=== PATIENT | female | born 1940 | race Caucasian/White ===

== ENCOUNTER 2022-06-16 11:04 | Emergency (ER) | payer MEDICARE ==
[~2022-06-16] VITALS: Ht 165.1 cm; Wt 75.3 kg
[2022-06-16 11:06] VITALS: BP 149/88
--- NOTE | 2022-06-16 11:09 | NUR ---
ARRIVAL PATIENT ARRIVED TO ED2 VIA GURNEY BY [facility], C/O HYPOGLYCEMIA TODAY, FAMILY AND PATIENT STATES SHE TOOK MORE LANTUS AND HUMALOG INSULIN LAST NIGHT, FAMILY HAS ATTEMPTED ALL DAY TO CORRECT BUT FEEDING PATIENT, LOWEST GLUCOSE PER EMS WAS 68, ON EMS ARRIVAL GLUCOSE IS 108, 18G WAS INITIATED TO THE LEFT AC SALINE LOCKED, PATIENT DID FALL LAST NIGHT WITH BRUISING TO THE LIP THIS MORNING, ASSISTED PATIENT TO ED RSAN DIEGO, VITAL SIGNS TAKEN AND DOCTOR NOTIFIED OF PATIENT'S ARRIVAL.
--- NOTE | 2022-06-16 11:17 | NUR ---
GLUCOSE BEDSIDE GLUCOSE 68, DOCTOR NOTIFIED.
[2022-06-16] MEDS ORDERED: DEXTROSE 10%-WATER IV SOLUTION 500 ML IV ONE (11:18)
[2022-06-16] MEDS ORDERED: DEXTROSE 10%-WATER IV SOLUTION 500 ML IV STA (11:19)
--- NOTE | 2022-06-16 11:19 | ER.PDOC ---
General Chief Complaint: General Complaint Stated Complaint: HYPOGLYCEMIA TRAVEL OUT OF US: No Time seen by MD: 11:12 Source: patient, EMS, EMS notes reviewed Exam Limitations: no limitations History of Present Illness Initial Comments Patient has been experiencing low blood sugar since last night. Per report from EMS, she is supposed to take 8 units of Lantus and 35 units of Humalog at night. She took 8 units of Lantus and 55 of Humalog last night. She was not unable to maintain her sugar which was monitored by a family member who is a dinkey operator. Before EMS was called, her sugar was 68. She ate and also drank juice. When EMS arrived on scene, repeat blood sugar was 108. Patient was brought in the ED to be evaluated. No chest pain or shortness of breath. She has a small bruise on the right upper lip from likely falling last night. She does not remember falling. Blood sugar here has dropped to 68. Timing/Duration: 4-6 hours Severity: moderate Associated Symptoms: denies symptoms Allergies: Coded Allergies: Penicillins (Verified Allergy, Unknown, ., 06/16/22) Sulfa (Sulfonamide Antibiotics) (Verified Allergy, Unknown, 06/16/22) acetaminophen (Verified Allergy, Unknown, 06/16/22) cephalexin (Verified Allergy, Unknown, 06/16/22) hydrocodone (Verified Allergy, Unknown, 06/16/22) levofloxacin (Verified Allergy, Unknown, 06/16/22) nitrofurantoin (Verified Allergy, Unknown, 06/16/22) Past Medical History Medical History: diabetes, renal disease, thyroid disease Surgical History: other Social History Alcohol Use: none Drug Use: none Review of Systems Constitutional: no symptoms reported EENTM: no symptoms reported Respiratory: no symptoms reported Cardiovascular: no symptoms reported Gastrointestinal: no symptoms reported Musculoskeletal: see HPI All Other Systems: Reviewed and Negative Physical Exam General Appearance: No Apparent Distress, WD/WN Neck: Non-Tender, Full Range of Motion, Supple, Normal Inspection Respiratory: chest non-tender, lungs clear, normal breath sounds, no respira tory distress CVS: reg rate & rhythm, no murmur, no gallop, pulses nml, nml capillary refill Gastrointestinal: Normal Bowel Sounds, No Organomegaly, No Pulsatile Mass, Non Tender Back: Normal Inspection, No CVA Tenderness Extremities: Normal Range of Motion, Non-Tender, Normal Inspection 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 (06/16/22 11:08) Xr Chest 1v (06/16/22 11:08) Ekg-Routine (06/16/22 11:08) Troponin I High Sensitivity (06/16/22 11:08) Urinalysis (06/16/22 11:08) Ct Head Wo Contrast (06/16/22 11:08) Dextrose 10 % In Water (Dextrose 10%-Ginger (06/16/22 11:18) Dextrose 10 % In Water (Dextrose 10%-Ginger (06/16/22 11:19) Urine Culture (06/16/22 13:45) Ceftriaxone Sodium (Rocephin) (06/16/22 14:53) Vital Signs Date Time Temp Pulse Resp B/P (MAP) Pulse Ox O2 Delivery O2 Flow Rate FiO2 06/16/22 13:39 96.0 58 18 138/54 (82) 99 Room Air* 0 21 06/16/22 11:06 96.0 66 18 149/88 (108) 99 Room Air* 0 21 06/16/22 11:06 96.0 66 18 99 06/16/22 11:06 96.0 66 18 Administered Medications Medications (Trade) Dose Ordered Sig/Vivek Route PRN Reason Start Time Stop Time Status Last Admin Dose Admin Ceftriaxone Sodium 1000 mg/ Sodium Chloride 100 ml @ 100 mls/hr STAT STAT IV 06/16/22 14:53 06/16/22 15:52 06/16/22 14:58 100 MLS/HR Dextrose 500 ml @ 100 mls/hr STAT STAT IV 06/16/22 11:19 06/16/22 16:18 UNV 06/16/22 11:25 100 MLS/HR Laboratory Tests Test 06/16/22 00:00 06/16/22 11:15 06/16/22 11:35 06/16/22 12:08 Urine Collection Type UNKNOWN Urine Color YELLOW Urine Appearance CLOUDY Urine Bilirubin NEGATIVE (NEGATIVE) Urine Ketones NEGATIVE (NEGATIVE) Urine Specific [place] 1.025 (1.005-1.030) Urine pH 5.0 (4.5-8.0) Urine Protein 3+ (NEGATIVE) H Urine Urobilinogen 0.2 E.U./dL (0.2) Urine Nitrate NEGATIVE (NEGATIVE) Urine Leukocyte Esterase TRACE (NEGATIVE) H Urine Glucose (Auto)(UA) 100 mg/dL (NEGATIVE) H Urine Blood 2+ (NEGATIVE) H Urine RBC 5-10 RBC/HPF (NONE SEEN) H Urine WBC 10-25 WBC/HPF (0-2) H Urine Squamous Epithelial Cells FEW (<=FEW) Urine Bacteria MANY (NONE SEEN) H POC Glucose 68 (70 - 110) L 124 (70 - 110) H White Blood Count 10.3 10^3/uL (4.5-11.0) Red Blood Count 4.31 10^6/uL (4.00-5.20) Hemoglobin 13.0 g/dL (12.0-15.0) Hematocrit 38.8 % (36.0-46.0) Mean Corpuscular Volume 90.0 fL (78-100) Mean Corpuscular Hemoglobin 30.2 pg (26-34) Mean Corpuscular Hemoglobin Concent 33.5 g/dL (33-36.5) Red Cell Distribution Width 11.9 % (11.5-14.5) Platelet Count 280 10^3/uL (150-400) Mean Platelet Volume 9.9 fL (7.8-11.0) Neutrophils (%) (Auto) 85.6 % (41.0-85.0) H Lymphocytes (%) (Auto) 11.8 % (24.0-44.0) L Monocytes (%) (Auto) 2.3 % (5.0-12.0) L Neutrophils # (Auto) 8.8 10^3/uL (1.8-7.7) H Lymphocytes # (Auto) 1.22 10^3/uL1 (1.0-4.8) Monocytes # (Auto) 0.2 10^3/uL (0.3-0.8) L Absolute Immature Granulocyte (auto 0.02 10^3 u/L (0-2) Absolute Eosinophils (auto) 0.0 10^3/uL (0.0-0.2) Immature Granulocytes % 0.20 % (0.00-0.50) Eosinophils % 0.0 % (0.0-5.0) Basophils % 0.1 % (0.0-0.2) Basophils # 0.0 10^3/uL (0.0-0.1) Prothrombin Time 10.3 SEC (9.1-11.5) Prothrombin Time INR (Non-Therap) 1.0 Activated Partial Thromboplast Time 20.9 SEC (22.5-33.1) L Sodium Level 143 mmol/L (132-145) Potassium Level 5.0 mmol/L (3.6-5.2) Chloride Level 106.0 mmol/L (96-109) Carbon Dioxide Level 22.1 mmol/L (20.0-32) Anion Gap 19.9 Blood Urea Nitrogen 59 mg/dL (7-18) H Creatinine 2.33 mg/dL (0.59-1.40) *H Estimated GFR () 24.4 (>/=60) Est GFR (CKD-EPI)(Non-Afr [place]) 20.2 (>/=60) BUN/Creatinine Ratio 25.0 Glucose Level 105 mg/dL (70-110) Calcium Level 9.5 mg/dL (8.4-10.5) Total Bilirubin 0.3 mg/dL (0.2-1.0) Aspartate Amino Transferase (AST) 33 U/L (0-35) Alanine Aminotransferase (ALT) 16 U/L (12-78) Alkaline Phosphatase 50 U/L (50-136) Total Creatine Kinase 506 U/L (26-192) H Troponin I High Sensitivity 49 ng/L (0-50) Total Protein 7.1 g/dL (6.4-8.2) Albumin 3.4 g/dL (3.4-5.0) Globulin 3.7 Albumin/Globulin Ratio 0.918 Test 06/16/22 13:34 06/16/22 14:24 POC Glucose 197 (70 - 110) H 244 (70 - 110) H Progress Progress CT head showed no acute abnormality. Chest x-ray show no acute disease. Urinalysis is consistent with UTI. Chemistry show creatinine of 2.33 and BUN of 59. Patient has stage III kidney disease. Troponin is normal. Rest of chemistry is unremarkable. CBC is normal. Patient fed and serial blood sugars 197 and 244. She was fed here. She is stable to go home. She is feeling better. Received Rocephin 1 g IV. ER DEPART Departure Time of Disposition: 15:08 Disposition: 01 HOME / SELF CARE / HOMELESS Impression: Primary Impression: Hypoglycemia Additional Impressions: Head injury, acute UTI (urinary tract infection) Condition: Improved Additional Instructions: Cefdinir Follow-up with your PCP in 2 to 3 days Return to ED if worsening symptoms or concerns Duration or Time Spent with Pa: 60 min Critical Care Note Total Time (mins): 60 Problem Qualifiers Additional Impressions: Head injury, acute Encounter type: initial encounter Qualified Codes: S09.90XA - Unspecified injury of head, initial encounter UTI (urinary tract infection) Urinary tract infection type: site unspecified Hematuria presence: with hematuria Qualified Codes: N39.0 - Urinary tract infection, site not specified; R31.9 - Hematuria, unspecified KEVIN NAIK MD Jun 16, 2022 11:19
--- NOTE | 2022-06-16 11:20 | PCM.EKG ---
[facility] Test Date: 2022-06-16 Test Time: 11:16:20 Pat Name: AGA ANTONY Department: Room: Gender: F Support Teacher: ALCIRA : 1940 Requested By: KEVIN NAIK Order Number: [id number] Reading MD: Kevin NAIK Measurements Intervals Weiser Rate: 58 P: 54 NE: 239 QRS: -56 QRSD: 121 T: 11 QT: 451 QTc: 444 Interpretive Statements Sinus rhythm Prolonged NE interval Nonspecific IVCD with LAD Left ventricular hypertrophy Inferior infarct, old Anterior infarct, old No previous ECG available for comparison Electronically Signed On 06-19-2022 7:24:59 [employer]ER by Kevin NAIK Please click the below link to view image of tracing.
[2022-06-16 11:44] LABS: BASOPHIL % 0.1 % (0.0-0.2); LYMPHOCYTES # 1.22 10^3/uL1 (1.0-4.8); LYMPHOCYTES % 11.8 % (24.0-44.0); MEAN CORP HGB 30.2 pg (26-34); MONOCYTES # 0.2 10^3/uL (0.3-0.8); MONOCYTES % 2.3 % (5.0-12.0); NEUTROPHIL # 8.8 10^3/uL (1.8-7.7); NEUTROPHILS % 85.6 % (41.0-85.0); PLATELET COUNT 280 10^3/uL (150-400); RED CELL DISTRIBUTION WIDTH 11.9 % (11.5-14.5)
--- NOTE | 2022-06-16 11:45 | DIREP ---
PROCEDURE:CHEST 1 VIEW COMPARISON:None. INDICATIONS:Hypoglycemia FINDINGS: LUNGS/PLEURA:No significant pulmonary parenchymal abnormalities. No effusions. VASCULATURE:Normal. Unremarkable pulmonary vasculature. CARDIAC:Normal. No cardiac silhouette abnormality or cardiomegaly. MEDIASTINUM:Atherosclerotic aorta with no visible aneurysm. BONES:Normal. No fracture or visible bony lesion. OTHER:Negative. CONCLUSION:Essentially normal examination. Please see above for incidental and/or clinically insignificant findings. Dictated by: Yudi Talbot M.D. on 06/16/2022 at 10:43 AM Read in [place]
[2022-06-16 12:13] LABS: CARBON DIOXIDE 22.1 mmol/L (20.0-32)
--- NOTE | 2022-06-16 12:32 | DIREP ---
PROCEDURE:CT HEAD OR BRAIN W/O CONTRAST COMPARISON:None. INDICATIONS:syncope TECHNIQUE:CT images were created without intravenous contrast. Significant motion artifact limits and compromises the exam. FINDINGS: VENTRICLES:The ventricles are normal in size and configuration. CEREBRUM:Normal cerebral morphology with appropriate valdez white matter differentiation. CEREBELLUM:Negative. BRAINSTEM:Negative. BASAL CISTERNS:Negative. HEMORRHAGE (Vol L*W*H*.52):No MASS LESION:No ACUTE INFARCT:No SKULL:Normal. SINUSES:Normal. OTHER:None CONCLUSION:Normal limited exam compromised by significant motion artifact. Dictated by: Faustino Abreu M.D. on 06/16/2022 at 12:29 PM
--- NOTE | 2022-06-16 13:34 | NUR ---
GLUCOSE BEDSIDE GLUCOSE 197, DOCTOR NOTIFIED.
[2022-06-16 13:39] VITALS: BP 138/54
[2022-06-16 13:44] LABS: BILIRUBIN,URINE NEGATIVE (NEGATIVE); UROBILINOGEN,URINE 0.2 E.U./dL (0.2)
--- NOTE | 2022-06-16 14:24 | NUR ---
GLUCOSE NOTIFIED KEVIN OF BG 244
[2022-06-16] MEDS ORDERED: ROCEPHIN 1,000 MG in NS 100ML 100 ML IV STA (14:53)
[2022-06-16 15:07] VITALS: BP 138/54
== END 2022-06-16 15:17 | disposition home or self-care (01) ==
LOC: ER 11:04
DX: S09.90XA Unspecified injury of head, initial encounter (principal); E07.9 Disorder of thyroid, unspecified; E11.649 Type 2 diabetes mellitus with hypoglycemia without coma; N39.0 Urinary tract infection, site not specified; X58.XXXA Exposure to other specified factors, initial encounter; Y93.89 Activity, other specified; Y92.89 Other specified places as the place of occurrence of the external cause; Y99.8 Other external cause status; Z88.0 Allergy status to penicillin; Z88.1 Allergy status to other antibiotic agents; Z88.2 Allergy status to sulfonamides; Z88.5 Allergy status to narcotic agent
CPT/HCPCS: 99291; 96365; 96366; 70450; 96368; 87086; 71045; 80053; 85025; 82948 ×4; 36415; 84484; 81001; 82550; 85610; 85730; 87077; 87186; 93005; J0696